=== PATIENT | male | born 1970 | race Caucasian/White ===

== ENCOUNTER 2018-02-21 10:21 | Emergency (ER) | payer OTHER ==
[2018-02-21 10:32] VITALS: BP 138/77
--- NOTE | 2018-02-21 10:41 | EDPHY ---
H & P Time Seen by Provider: 02/21/18 11:05 HPI/ROS: Chief complaint. Hand laceration HPI. 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 He is right handed. Has full range of motion of his thumb and does not feel there is any restriction or weakness. He does not have any sense of retained foreign body. No other injuries ROS 10 systems were reviewed and negative with the exception of the elements mentioned in the history of present illness Past Medical/Surgical History: Peptic ulcer disease Social History: , nonsmoker, no alcohol Smoking Status: Never smoked Physical Exam: General Appearance: Alert well-developed male mild distress vital signs are stable Eyes: Pupils equal and round no pallor or injection. ENT, Mouth: Mucous membranes are moist. Respiratory: There are no retractions, lungs are clear to auscultation. Cardiovascular: Regular rate and rhythm. Gastrointestinal: Abdomen is soft and nontender, no masses, bowel sounds normal. Neurological: Awake and alert, sensory and motor exams grossly normal. Full range of motion against resistance to the thumb. No altered sensation Skin: 2.5 cm laceration to the ulnar aspect of the base of thumb. Musculoskeletal: Neck is supple nontender. Extremities symmetrical, full range of motion. Psychiatric: Patient is oriented X 3, there is no agitation. Constitutional: Initial Vital Signs Temperature (C) 36.6 C 02/21/18 10:28 Heart Rate 79 02/21/18 10:28 Respiratory Rate 14 02/21/18 10:28 Blood Pressure 138/77 H 02/21/18 10:28 O2 Sat (%) 91 L 02/21/18 10:28 O2 Delivery Mode Room Air Allergies/Adverse Reactions: No Known Allergies Allergy (Verified 02/21/18 10:27) Home Medications: Medication Instructions Recorded NK [No Known Home Meds] 02/21/18 Medical Decision Making Procedures: Procedure: Laceration repair. Verbal consent was obtained from the patient. The 2.5 cm laceration on the left thumb was anesthetized in the usual fashion. The wound was irrigated, draped and explored to its base with a gloved finger. There were no deep structures involved. No tendon injury was identified. The wound was repaired with seven 4-0 prolene sutures. The wound repair was simple. The procedure was performed by myself. ED Course/Re-evaluation: Patient remained stable. He and I discussed treatment plan including criteria for return importance of follow-up and further evaluation. He expresses understanding and agreement Differential Diagnosis: I considered tendon injury, retained foreign body Departure - Departure Disposition: Home, Routine, Self-Care Clinical Impression: Laceration of thumb Qualifiers: Encounter type: initial encounter Damage to nail status: without damage Foreign body presence: without foreign body Laterality: left Qualified Code(s): S61.012A - Laceration without foreign body of left thumb without damage to nail , initial encounter Condition: Good Instructions: Care For Your Stitches (ED) Additional Instructions: Keep cut clean and dry. You may shower and wash your hands with stitches in. Apply antibiotic ointment and bandage daily. Return for signs of infection Stitches out 10 days
== END 2018-02-21 11:20 | disposition home or self-care (01) ==
LOC: CED 10:21
PROC: 0HQGXZZ Repair Left Hand Skin, External Approach (ICD-10-PCS; principal; 2018-02-21)
DX: S61.012A Laceration without foreign body of left thumb without damage to nail, initial encounter (principal); W26.0XXA Contact with knife, initial encounter; Y92.9 Unspecified place or not applicable; Y93.9 Activity, unspecified; Y99.9 Unspecified external cause status